=== PATIENT | female | born 1980 | race Caucasian/White ===

== ENCOUNTER 2022-04-28 09:13 | Emergency (ER) | payer BC, SELFPAY ==
[2022-04-28] VITALS (8 sets, daily range): BP systolic 120–141; BP diastolic 78–87; PULSE 97–120; RESP 16–20; TEMP 36.9; O2SAT 94–96; BMI 35.1
--- NOTE | 2022-04-28 09:59 | PC.NURSE ---
pt reports unable to urinate at this time
[2022-04-28 10:13] LABS: Basophils % 0.4 % (0.1-2.0); Eosinophils # 0.1 K/mm3 (0.0-0.4); Eosinophils % 1.4 % (0.1-12.0); Lymphocytes # 0.4 K/mm3 (0.7-4.5); Lymphocytes % 4.8 % (10-50); Mean Corpuscular HGB Conc 33.4 g/dL (31.8-35.4); Mean Corpuscular Hemoglobin 29.5 pg (27.0-31.2); Mean Corpuscular Volume 88.3 fl (81-99); Mean Platelet Volume 7.7 fl (7.4-10.4); Neutrophils # 7.3 K/mm3 (1.8-7.8); Neutrophils % 82.5 % (37.0-80.0); Platelet Count 467 K/mm3 (142-424); Red Blood Count 4.07 M/mm3 (4.20-5.40); Red Cell Distribution Width 13.3 % (11.5-17.5); White Blood Count 8.8 K/mm3 (4.8-10.8)
[2022-04-28 10:20] LABS: Lipase 63 U/L (23-300)
[2022-04-28 10:21] LABS: Alanine Aminotransferase 57 U/L (12-78); Albumin Level 3.7 g/dl (3.5-5.0); Albumin/Globulin Ratio 1.1 (1.1-1.8); Alkaline Phosphatase 163 U/L (38-126); Anion Gap 12.4 mEq/L (5-15); Aspartate Amino Transferase 51 U/L (14-36); Bilirubin,Total 0.6 mg/dl (0.2-1.3); Blood Urea Nitrogen 7 mg/dl (7-17); Calcium 8.3 mg/dl (8.4-10.2); Carbon Dioxide 26 mmol/L (22.0-30.0); Chloride 98 mmol/L (98-107); Creatinine Clearance Estimated 115 mL/min (50-200); Estimated Glomerular Filt Rate 70 ml/min (>60); GFR (African American) 84 ML/MIN (>60); Globulin 3.3 g/dL (1.3-3.2); Glucose 132 mg/dl (74-100); Potassium 3.4 mmoL/L (3.5-5.1); Sodium 133 mmol/L (136-145)
--- NOTE | 2022-04-28 10:55 | HMH.EDGENADL ---
Discharge Plan Disposition Patient Disposition: Home, Self-Care Condition: Good Chief Complaint: Abdominal Pain Referrals Follow up/Referrals: Provider,Referral, [Primary Care Provider] - See instructions Activity Restrictions/Add. Instructions Additional Instructions/Restrictions: [id number] bowel stimulant. Drink plenty of water. Avoid marijuana use as it can lead to prolonged nausea with vomiting. Clinical Impressions Clinical Impression: Constipation Instructions Patient Instructions: DI for Acute Abdominal Pain Discharge ED Provider: Pedro Travis General Adult HPI General Chief complaint: Abdominal Pain Stated complaint: abd pain X 2 weeks Time Seen by Provider: 04/28/22 09:27 Mode of Arrival: Ambulatory Limitations: No Limitations Description of Symptoms (Recalled from ER Triage Doc. by RN): Pt reports gas pain in abd for approx 2 weeks. Pt reports pain has been intermittent in nature . Pt reports has also been having chills, body aches and fever x5 days. Pt reports has only had small BMs daily for the several days. Pt denies urinary symptoms. History of Present Illness HPI narrative: 41yo F presents to the emergency department with multiple complaints. Patient reports 2 weeks of abnormal abdominal pain. Symptoms are intermittent. Reports change in her bowel habits. Denies any blood in her stool. Denies previous abdominal surgery other than a tubal ligation. Denies nausea or vomiting. Denies change in her diet. Patient also complains of fever/chills, body aches x5 days. Denies cough. Denies known sick contact. Reports taking no daily medication. Related Data Allergies Allergy/AdvReac Type Severity Reaction Status Date / Time codeine Allergy Verified 04/28/22 09:43 Sulfa (Sulfonamide Allergy Verified 04/28/22 09:43 Antibiotics) [facility] Disclaimer: The information contained in this section may have been updated after the patient was seen, as this information can be updated by other users. Medical History Multiple sclerosis Surgical History H/O lithotripsy Tubal ligation status Social History Smoking Status: Never smoker alcohol intake: never current occupational status: other Travel in the last 8 weeks: None ROS Obtained: Yes Systems reviewed as appropriate & no additional complaints except as documented Physical Exam General General appearance: alert, in no apparent distress and obese Head Head exam: atraumatic Eye Eye exam: Present normal appearance; Absent jaundice Neck Neck exam: Present normal inspection and trachea midline Chest Chest inspection: Present normal inspection Respiratory Respiratory exam: Present normal lung sounds bilaterally; Absent respiratory distress, wheezes or stridor Cardiovascular Cardiovascular exam: Present regular rate, normal rhythm and normal heart sounds Abdominal Exam Abdominal exam: Present soft and normal bowel sounds; Absent distention, tenderness, guarding, rebound or rigidity Extremities Exam Extremities exam: Present normal capillary refill; Absent edema Neurological Exam Neurological exam: Present alert, oriented X3 and CN II-XII intact Psychiatric Psychiatric exam: Present normal affect and normal mood Skin Skin exam: Present warm, dry and intact Medical Decision Making Medical Records Medical records reviewed: Yes I reviewed the patient's medical records. Adin Inquiry Pt receiving controlled substance: No Adin was queried for this patient: No Vital Signs: 04/28/22 09:13 04/28/22 10:00 04/28/22 10:30 Temperature 98.4 F Temperature Source Oral Pulse Rate 110 H 97 H Pulse Rate [Left Radial] 120 H Respiratory Rate 16 20 20 Blood Pressure 138/87 141/86 H Blood Pressure [Left Arm] 123/87 Blood Pressure Mean 99 102 Blood Pressu
--- NOTE | 2022-04-28 10:57 | PC.NURSE ---
pt in restroom at this time
[2022-04-28 11:20] LABS: Amphetamine/Metha Screen,Urine Negative ng/ml (<1000); Benzodiazepines Screen,Urine Negative ng/ml (<200)
[2022-04-28 11:21] LABS: Barbiturates Screen,Urine Negative ng/ml (<200); Cannabinoid Screen,Urine Positive ng/ml (<50)
[2022-04-28 11:22] LABS: Cocaine Screen,Urine Negative ng/ml (<300)
[2022-04-28 11:23] LABS: Methadone Screen,Urine Negative ng/ml (<300); Opiate Screen,Urine Negative ng/ml (<300)
[2022-04-28 11:24] LABS: Phencyclidine Screen,Urine Negative ng/ml (<25)
[2022-04-28 11:58] LABS: Microscopic, Urine URINE MICROSCOPIC (MICROSCOPIC)
[2022-04-28 12:01] LABS: Appearance,Urine CLEAR (Clear); Blood, Urine Negative (Negative); Color,Urine YELLOW (Yellow); Glucose,Urine (UA) Negative (Negative); Ketones,Urine 3+ (Negative); Leukocyte Esterase,Urine Negative (Negative); Nitrate,Urine Negative (Negative); PH,Urine 6.5 (5.0-8.5); Protein,Urine 2+ (Negative); Specific Gravity, Urine 1.025 (1.005-1.030)
[2022-04-28 12:02] LABS: Urine Pregnancy, HCG Qual. Negative (Negative)
[2022-04-28 12:04] LABS: Bilirubin,Urine 2+ (Negative)
--- NOTE | 2022-04-28 12:05 | XR_ITS ---
FINAL REPORT CLINICAL HISTORY: pain for 2wks FINDINGS: Chest: A single view of the chest demonstrates no acute cardiopulmonary process. Abdomen: Flat and upright views of the abdomen demonstrate scattered air-fluid levels in a nonspecific bowel gas pattern. There is no free air. IMPRESSION: Nonspecific bowel gas pattern. Reviewed, Interpreted and Dictated by Jack Dior III, MD Transcribed by Timothy Belcher Authenticated and [facility]
[2022-04-28 12:20] LABS: Bacteria,Urine 2+ /lpf
== END 2022-04-28 13:56 | disposition home or self-care (01) ==
PROVIDERS: Emergency Provider Family Medicine
DX: K59.00 Constipation, unspecified (principal); G35 Multiple sclerosis; Z98.51 Tubal ligation status
CPT/HCPCS: 74021; 80053; 80305; 81001; 81025; 83690; 85025; 87086; 96374; 99285

== ENCOUNTER 2023-04-08 09:29 | Emergency (ER) | payer BC, SELFPAY ==
--- NOTE | 2023-04-08 09:40 | PC.NURSE ---
patient given a warm blanket and pillow for comfort
[2023-04-08 09:41] VITALS: BP 159/101; PULSE 101; O2SAT 97
--- NOTE | 2023-04-08 09:44 | PC.NURSE ---
Dr. Bernard at [facility] for patient eval
--- NOTE | 2023-04-08 09:47 | HMH.EDGENADL ---
Discharge Plan Disposition Patient Disposition: Home, Self-Care Prescriptions Prescriptions: New prochlorperazine maleate [Compazine] 10 mg tablet 10 mg PO Q8H PRN (Reason: nausea and vomiting and headache) 7 Days Qty: 20 0RF Rx Instructions: Please take with 800 mg of ibuprofen and 25 mg of Benadryl and expect sedation No Action baclofen 20 mg tablet 20 mg PO BID gabapentin 300 mg capsule 300 mg PO BID ondansetron 4 mg tablet,disintegrating 4 mg PO TIDP PRN (Reason: Nausea And Vomiting) naratriptan 2.5 mg tablet 2.5 mg PO DIRECTED bupropion HCl 150 mg tablet extended release 24 hr 150 mg PO DAILY cholecalciferol (vitamin D3) [Vitamin D3] 50 mcg (2,000 unit) tablet 50 mcg PO DIRECTED Mayzent 2 mg tablet 2 mg PO DAILY Referrals Follow up/Referrals: Provider,Referral, [Primary Care Provider] - See instructions Activity Restrictions/Add. Instructions Additional Instructions/Restrictions: As discussed I would recommend you follow-up with your primary care doctor or neurologist to get back on your suppressive medications for your migraines. After discussing with you it is most likely that you are on Topamax which you stated had good success with keeping her headaches at bay. In the meantime you may take the abortive medications that we discussed including the Compazine Benadryl ibuprofen cocktail that I prescribed you. Return with any neurologic symptoms as discussed. Clinical Impressions Clinical Impression: Migraine Discharge ED Provider: Kamar Bernard General Adult HPI General Chief complaint: Headache Stated complaint: headache nausea chills Time Seen by Provider: 04/08/23 09:38 History of Present Illness HPI narrative: Patient is a 42-year-old female present today with a headache. States she has a history of migraines has headaches almost daily typically takes multiple medications including a triptan Excedrin OTC medications all of which have not worked today. She states that her headache began on Thursday and has been worsening since that time. She states she is never had to come to the emergency department for headaches this severe in the past however does state this is similar in nature to migraines that she has had. She denies any new or different neurologic symptoms denies any thunderclap component of this denies any fevers chills meningismus etc. Related Data Home Medications Medication Instructions Recorded Confirmed baclofen 20 mg tablet 20 mg PO BID 04/08/23 04/08/23 bupropion HCl 150 mg 24 hr tablet, 150 mg PO DAILY 04/08/23 04/08/23 extended release cholecalciferol (vitamin D3) 50 50 mcg PO DIRECTED 04/08/23 04/08/23 mcg (2,000 unit) tablet (Vitamin D3) gabapentin 300 mg capsule 300 mg PO BID 04/08/23 04/08/23 naratriptan 2.5 mg tablet 2.5 mg PO DIRECTED migraine 04/08/23 04/08/23 ondansetron 4 mg disintegrating 4 mg PO TIDP PRN Nausea And 04/08/23 04/08/23 tablet Vomiting siponimod 2 mg tablet (Mayzent) 2 mg PO DAILY 04/08/23 04/08/23 Previous Rx's Medication Instructions Recorded prochlorperazine maleate 10 mg 10 mg PO Q8H PRN nausea and 04/08/23 tablet (Compazine) vomiting and headache 7 days #20 tabs Allergies Allergy/AdvReac Type Severity Reaction Status Date / Time codeine AdvReac Intermediate flu like Verified 04/08/23 10:09 symtoms Sulfa (Sulfonamide AdvReac Intermediate flu like Verified 04/08/23 10:09 Antibiotics) symtoms PFSH PFSH Disclaimer: The information contained in this section may have been updated after the patient was seen, as this information can be updated by other users. Medical History (Updated 04/08/23 @ 11:43 by Kamar Bernard MD) Left breast lump Multiple sclerosis Surgical History (Updated 04/08/23 @ 10:55 by Guadalupe Saenz RN) H/O lithotripsy History of lumpectomy of left breast Tubal ligation status Social History (Updated 04/28/22 @ 13
[2023-04-08 09:50] VITALS: BP 159/101; PULSE 102; RESP 17; TEMP 36.7; O2SAT 97; BMI 38.4
[2023-04-08 09:54] LABS: Microscopic, Urine URINE MICROSCOPIC (MICROSCOPIC)
[2023-04-08 10:00] LABS: Appearance,Urine CLEAR (Clear); Bilirubin,Urine Negative (Negative); Blood, Urine Negative (Negative); Color,Urine YELLOW (Yellow); Glucose,Urine (UA) Negative (Negative); Ketones,Urine TRACE (Negative); Leukocyte Esterase,Urine Negative (Negative); Nitrate,Urine Negative (Negative); Protein,Urine Negative (Negative); Specific Gravity, Urine 1.015 (1.005-1.030); Urobilinogen,Urine 0.2 EU/dl (0.2)
[2023-04-08 10:15] LABS: Bacteria,Urine Trace /lpf; Mucus,Urine Trace /lpf; RBC,Urine Occasional #/hpf (0-3); WBC,Urine Occasional #/hpf (0-3)
[2023-04-08 10:30] VITALS: PULSE 105; O2SAT 95
--- NOTE | 2023-04-08 10:55 | PC.NURSE ---
pt resting quietly in room.
[2023-04-08 11:07] VITALS: BP 121/64; PULSE 88; O2SAT 98
--- NOTE | 2023-04-08 11:07 | PC.NURSE ---
rounded on patient; pt reports her pain is still a 5/10. Given another warm blanket for comfort, no other needs
[2023-04-08 11:50] VITALS: BP 121/64; PULSE 88; RESP 17; TEMP 36.7; O2SAT 98
== END 2023-04-08 12:01 | disposition home or self-care (01) ==
LOC: UTC 09:34 → ER 09:37
PROVIDERS: Emergency Provider Student in an Organized Health Care Education/Training Program
DX: G43.909 Migraine, unspecified, not intractable, without status migrainosus (principal); Z87.891 Personal history of nicotine dependence
CPT/HCPCS: 81001; 96361; 96374; 96375; 99284